=== PATIENT | female | born 1975 | race African-American/Black ===

== ENCOUNTER 2016-07-03 00:03 | Emergency (ER) | payer OTHER ==
[~2016-07-03] VITALS: Ht 162.6 cm; Wt 90.7 kg
[~2016-07-03 00:03] MED LIST: AMOXICILLIN875 MG PO; CARAFATE 1 GM TA1 G1 PO; KEFLEX500 MG PO; LOESTRIN1 EACH PO; MEGA BIOTIN10000 MCG PO; NAPROSYN500 MG PO; NORCO 5-325 TA1 EACH PO; NORFLEX100 MG PO; ONDANSETRON HCL4 M2 PO; PRILOSEC40 MG PO; TRAMADOL 50 MG50 MG PO; VALACYCLOVIR500 MG PO; VITAMIN D1000 UNI1 PO; VITAMIN D31000 UNI2 PO; ZOFRAN ODT4 MG DISSOLVE
[2016-07-03 04:46] VITALS: BP 116/54
== END 2016-07-03 04:48 | disposition home or self-care (01) ==
LOC: ER 00:03
DX: F10.129 Alcohol abuse with intoxication, unspecified (principal); Z98.890 Other specified postprocedural states

== ENCOUNTER 2018-03-06 19:29 | Emergency (ER) | payer OTHER ==
[~2018-03-06] VITALS: Ht 167.6 cm; Wt 78.5 kg
--- NOTE | ~2018-03-06 | EKG ---
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
[~2018-03-06 19:29] MED LIST changes: +DEXAMETHASONE 44 M1 PO; +DIPHENHIST50 MG PO
[2018-03-06 20:26] LABS: ABSOLUTE NEUTROPHILS 1.7 thou/uL (1.4-8.2); BASOPHILS 0.6 % (0.0-2.0); EOSINOPHILS 3.2 % (0.0-3.0); HEMOGLOBIN 13.7 gm/dL (12.0-15.0); MCH 32.3 pg (26.0-34.0); MCHC 34.3 g/dL (28.0-37.0); MONOCYTES 6.6 % (1.0-8.0); PLATELET COUNT 171 thou/uL (150-400); POLYS 35.6 % (36.0-66.0); RBC 4.25 mil/uL (4.20-5.00); RDW 13.8 % (10.5-14.5); WBC 4.8 thou/uL (4.0-11.0)
[2018-03-06 20:34] LABS: ANION GAP 4 mmol/L (7-16); BUN 11 mg/dL (7-18); CALCIUM 8.5 mg/dL (8.5-10.1); CHLORIDE 104 mmol/L (98-107); CO2 29 mmol/L (21-32); CREATININE 0.7 mg/dL (0.6-1.0); GLUCOSE 90 mg/dL (74-106); POTASSIUM 3.7 mmol/L (3.5-5.1); SODIUM 137 mmol/L (136-145)
[2018-03-06 20:42] LABS: TROPONIN-I <0.06 ng/mL (<0.06)
[2018-03-06] MEDS ORDERED: MOBIC15 MG PO (21:28)
[2018-03-06 21:35] VITALS: BP 139/78
== END 2018-03-06 21:36 | disposition home or self-care (01) ==
LOC: ER 19:29
PROVIDERS: Physician Assistant
DX: R07.89 Other chest pain (principal)

== ENCOUNTER 2018-10-23 11:57 | Emergency (ER) | payer OTHER ==
[~2018-10-23] VITALS: Ht 167.6 cm; Wt 85.7 kg
[~2018-10-23 11:57] MED LIST changes: +MOBIC15 MG PO
[2018-10-23 12:40] LABS: ABSOLUTE NEUTROPHILS 1.5 thou/uL (1.4-8.2); BASOPHILS 0.5 % (0.0-2.0); EOSINOPHILS 1.7 % (0.0-3.0); HEMATOCRIT 40.2 % (37.0-47.0); HEMOGLOBIN 13.5 gm/dL (12.0-15.0); LYMPHOCYTES 49.3 % (24.0-44.0); MCH 31.3 pg (26.0-34.0); MCHC 33.6 g/dL (28.0-37.0); MCV 93.2 fL (80.0-100.0); MONOCYTES 7.3 % (1.0-8.0); PLATELET COUNT 187 thou/uL (150-400); POLYS 41.2 % (36.0-66.0); RBC 4.32 mil/uL (4.20-5.00); RDW 13.7 % (10.5-14.5); WBC 3.6 thou/uL (4.0-11.0)
[2018-10-23 13:04] LABS: ANION GAP 7 mmol/L (7-16); BUN 12 mg/dL (7-18); CALCIUM 8.4 mg/dL (8.5-10.1); CHLORIDE 105 mmol/L (98-107); CO2 28 mmol/L (21-32); CREATININE 0.7 mg/dL (0.6-1.0); GLUCOSE 91 mg/dL (74-106); SODIUM 140 mmol/L (136-145)
[2018-10-23 13:05] LABS: POTASSIUM 4.2 mmol/L (3.5-5.1)
[2018-10-23 13:15] LABS: ALBUMIN 3.5 g/dL (3.4-5.0); SGOT 24 U/L (15-37); SGPT 25 U/L (30-65); TOTAL BILIRUBIN 0.4 mg/dL (<0.1-1.0); TOTAL PROTEIN 7.2 g/dL (6.4-8.2); TROPONIN-I <0.06 ng/mL (<0.06)
[2018-10-23 15:40] VITALS: BP 130/79
--- NOTE | 2018-10-24 07:58 | EKG ---
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 : 1975 Requested By: Dipak Garcia Order Number: [id number] MD: Vik Green Measurements Intervals [place] Rate: 59 P: -23 DC: 167 QRS: 6 QRSD: 107 T: 15 QT: 409 QTc: 406 Interpretive Statements Sinus rhythm Low voltage, precordial leads Compared to ECG 03/06/2018 19:31:50 No significant changes Electronically Signed On 10-24-2018 7:57:52 CDT by Vik Green [email or web address] ��������������������������������������������� <ELECTRONICALLY SIGNED> ���������������������������������������� By: Vik Green MD ��������������������������������������������� 10/24/18 0757 1228 1228 Vik Green MD /FLOR
== END 2018-10-23 15:41 | disposition home or self-care (01) ==
LOC: ER 11:57
PROVIDERS: Emergency Medicine
DX: R07.89 Other chest pain (principal); R11.10 Vomiting, unspecified; R42 Dizziness and giddiness

== ENCOUNTER 2019-08-10 08:41 | Emergency (ER) | payer OTHER ==
[~2019-08-10] VITALS: Ht 167.6 cm; Wt 88.0 kg
[2019-08-10] MEDS ORDERED: FLONASE 0.05%50 MCG NASAL (10:20)
[2019-08-10 10:38] VITALS: BP 130/87
== END 2019-08-10 10:42 | disposition home or self-care (01) ==
LOC: ER 08:41
DX: J06.9 Acute upper respiratory infection, unspecified (principal); Z90.49 Acquired absence of other specified parts of digestive tract; Z98.51 Tubal ligation status; Z98.890 Other specified postprocedural states

== ENCOUNTER → 2019-12-19 | Outpatient (CLI) | payer OTHER ==
[~2019-12-19] MED LIST changes: +FLONASE 0.05%50 MCG NASAL
== END ==
LOC: ULTRA 08:09 → BC 14:44 → ULTRA 15:10
PROVIDERS: ATTEND Obstetrics & Gynecology Obstetrics
DX: Z12.31 Encounter for screening mammogram for malignant neoplasm of breast (principal); N85.2 Hypertrophy of uterus; D25.9 Leiomyoma of uterus, unspecified; N83.202 Unspecified ovarian cyst, left side